=== PATIENT | male | born 1985 | race Caucasian/White ===

== ENCOUNTER 2021-11-23 12:36 | Emergency (ER) | payer MEDICAID ==
[~2021-11-23] VITALS: Ht 180.3 cm; Wt 82.6 kg
--- NOTE | 2021-11-23 12:48 | NUR ---
PT SEEN AND EVALUATED BY DR LAYNE.
[2021-11-23] MEDS ORDERED: IBUP-1955 PO (13:32)
[2021-11-23 13:56] VITALS: BP 134/84
--- NOTE | 2021-11-23 13:58 | NUR ---
Patient discharged to home in stable condition. Written and verbal after care instructions given. Patient verbalizes understanding of instructions. Stressed follow up or return to ER for worsening s/s.
== END 2021-11-23 13:58 | disposition home or self-care (01) ==
LOC: ER 12:36
DX: S62.101A Fracture of unspecified carpal bone, right wrist, initial encounter for closed fracture (principal); V00.131A Fall from skateboard, initial encounter; Y93.51 Activity, roller skating (inline) and skateboarding; Y92.89 Other specified places as the place of occurrence of the external cause
CPT/HCPCS: 73110; A4663